=== PATIENT | male | born 1955 | race Caucasian/White ===

== ENCOUNTER → 2024-03-24 13:29 | Outpatient (REF) | payer MEDICARE, OTHER, SELFPAY ==
[2024-03-24 14:14] LABS: Hematocrit 41.1 % (39.0-52.0); Hemoglobin 14.6 g/dL (13.0-18.0); Mean Corp Hgb Conc. 35.5 g/dL (33.0-37.0); Mean Corpuscular Hgb 31.4 pg (27.0-31.0); Mean Corpuscular Volume 88.4 fL (80.0-94.0); Mean Platelet Volume 8.3 fL (7.4-10.4); Platelet Count 168 10^3/uL (130-400); Red Blood Cell Count 4.65 10^6/uL (4.70-6.10); Red Cell Dist. Width 12.8 % (11.5-14.5); White Blood Cell Count 6.4 10^3/uL (4.8-10.8)
== END ==
LOC: SDSPAT 13:29
PROVIDERS: ATTENDING PHYSICIAN Orthopaedic Surgery Hand Surgery; FAMILY PHYSICIAN Student in an Organized Health Care Education/Training Program
DX: Z01.818 Encounter for other preprocedural examination (principal)
CPT/HCPCS: 36415; 85027; 93005

== ENCOUNTER 2024-04-01 06:11 | Day surgery (SDC) | payer MEDICARE, SELFPAY ==
[2024-03-24 14:02] VITALS: BMI 32.3
[2024-04-01] VITALS (9 sets, daily range): BP systolic 118–148; BP diastolic 61–73; BMI 32.3
[2024-04-01] MEDS: NORMOSOL-R/PLASMALYTE-A 1000 IV (07:52)
[2024-04-01] MEDS: TYLENOL 1000 MG PO (07:53)
[2024-04-01] MEDS: CELEBREX 200 MG PO (07:53)
[2024-04-01] MEDS: ROXICODONE 5 MG PO (12:05)
== END 2024-04-01 12:43 | disposition home or self-care (01) ==
LOC: SDS 06:11
PROVIDERS: ATTENDING PHYSICIAN Orthopaedic Surgery Hand Surgery; FAMILY PHYSICIAN Student in an Organized Health Care Education/Training Program
DX: M75.41 Impingement syndrome of right shoulder (principal); S46.012A Strain of muscle(s) and tendon(s) of the rotator cuff of left shoulder, initial encounter; W19.XXXA Unspecified fall, initial encounter
CPT/HCPCS: 29827; 29826; 29823; C1713

== ENCOUNTER 2024-04-16 17:15 | Inpatient (IN) | payer MEDICARE, OTHER, SELFPAY ==
[2024-04-16] VITALS (8 sets, daily range): BP systolic 133–171; BP diastolic 72–88; BMI 32.0
--- NOTE | 2024-04-16 09:51 | ED.GENMED ---
History of Present Illness
<Jia Gross PA-C - Last Filed: 04/16/24 16:44>
General
Chief Complaint: Musculo-Skeletal Complaint
Source: patient
Exam Limitations: none
Time Seen by Provider: 04/16/24 09:29
Nursing documentation reviewed up to this point in time: agreed with
History of Present Illness
History of Present Illness:
69 y/o M with weakness in ghis legs for 2 days
pt says that he noticed he had some difficulty feeling slightly weak in his left leg with some discomfort in his L groin/prox thigh region
he was still able to walk around, grilled for dinner etc
by yesterday he was unable to walk unassisted; he has trouble picking his leg up off the grouna dnow feels it on his right thigh/groin region as well
no saddle anesthesia or incontinence; took him 20 minutes to get to the bathroom
ultimately called 911 today because he coudltn' walk well enough to get to the car
no fever/chills/back pain, cp, sob, numbness, headache
no back problems
takes a statin
no swelling in the legs
rotator cuff surgery 2 weeks ago
no recent vaccines
Phy Exam
<Jia Gross PA-C - Last Filed: 04/16/24 16:44>
Physical Exam
Physical Exam:
GENERAL: Alert , in no apparent distress
HEAD: NCAT
EYE: pupils equal and reactive, no nystagmus, no photophobia
NECK: Supple,full rom, nontender
ENT: o/p clr, mmm.
CARDIAC: Regular rate and rhythm . no edema
LUNGS: Clear breath sounds bilaterally, no acute respiratory distress, no wheezes/rales/rhonchi
ABDOMEN: Soft, without focal tenderness, no r/g, no cvat
NEUROLOGICAL: Alert and orientedx 4, cn intact, no facial asymmetry, 5/5 strength in UE/LE, sensation intact, romberg neg, ambulates without assistance, neg pronator drift
SKIN: Warm and dry, skin intact.
MUSCULOSKELETAL: No edema, well perfused.
PSYCH: Normal and appropriate interaction.
Course
<Jia Gross PA-C - Last Filed: 04/16/24 16:44>
Orders/Labs/Results
Orders:
Orders
04/16/24 09:45
Electrocardiogram (*1) Urgent
Reason for Study: Fatigue / Weakness
EKG- Treatment ONCE
04/16/24 10:00
Consult Neurology [NEUROLOGY CONSULT] Urgent
Consulting Provider: Thien Mcpherson
Was physician already notified: Yes
04/16/24 10:06
COVID-19 Antigen Urgent
Source: Nasal Swab
CPK [Creatine Phosphokinase] Urgent
CRP [C-Reactive Protein] Urgent
Complete Blood Count/With Diff Urgent
Comprehensive Metabolic Panel Urgent
ESR [Erythrocyte Sed Rate] Urgent
Lyme Progressive Urgent
Magnesium Urgent
Comment: ADD ON
Phosphorus Urgent
Comment: ADD ON
TSH Reflex To Free T4 Urgent
Influenza A+B Rapid Molecular Urgent
CASI Source: Nasal Swab
Specimen Description:
04/16/24 10:25
Add On- LAB Urgent
Tests Added?: magnesium and phosphorus
04/16/24 10:43
MR Lumbar W/o & With Contrast Urgent
Comment:
Reason For Exam: prox LE weakness
Recent pill cam endoscopy?: No
MR Thoracic Spine W/o & With Stat
Comment:
Reason For Exam: prox LE/groing/pelvis weakness
Recent pill cam endoscopy?: No
04/16/24 Dinner
Regular
At Your Request: Full Participation
Does patient need a safe tray?: No
04/16/24 16:31
Add On- LAB Urgent
Tests Added?: creat kinase
Ct Cta A/P W/Wo Urgent
Reason For Exam: Abdominal pain
04/16/24 17:02
Cyclobenzaprine HCl [Flexeril] 10 mg PO NOW STA
Cyclobenzaprine HCl [Flexeril] 10 mg PO TIDPRN PRN
04/16/24 17:07
Admit/Transfer Patient As Directed
Co-Sign Provider:
Level of Care: Inpatient admission
Assign to:: Medical/Surgical
Physician / Group: theodore carver
Diagnosis: bilat thigh weakenss/ spasm amb dys unclear poss myopathy vs other neuromus
Reason for Hospitalization: bilat thigh weakenss/ spasm amb dys unclear poss myopathy vs other neuromus
Expected length of stay greater than two midnights?: Yes
ELOS- Estimated Length of Stay in days: 4
I certify the patient meets the requirements for IP care: Yes
Code Status As Directed
Resuscitation Status: Full Code
04/16/24 17:09
PRN Pain Medication Management As Directed
May give lesser potent ordered pain med per pt: Yes
preference::
Protocol:: Medication orders for pain may be administered in a
manner that supports deferring to patient preference
when the pt is:
- Requesting an ordered lesser potent pain medication.
Least to most potent pain medications are defined
as: acetaminophen < NSAID < tramadol < opioids
(morphine, oxycodone, hydromorphone).
- Requesting a lesser dose of the same medication IF
ORDERED.
- Requesting a less intrusive route of administration
if both routes are prescribed by the provider (PO <
IV).
04/16/24 17:10
Neurosurgery Consult Routine
Consulting Provider: Jed Smith
Was physician already notified: Yes
Reason for Consult: bilat leg thigh weakness with amb dysfunction
Consult Physiatry [Physiatry Consult] Routine
Consulting Provider: Luis Carlos Peñaloza
Was physician already notified: Yes
Reason for consult: bilat leg thight weakness
04/16/24 18:13
Acetaminophen [Tylenol] 650 mg PO Q4HPRN PRN
Oxycodone [Roxicodone] 5 mg PO BIDPRN PRN
04/16/24 18:13
Activity As Directed
Activity Level: With Assistance
Bladder Scan As Directed
Follow Bladder Retention/Intermittent Cath Algorithm?: Yes
PRN if no void in __ hours: 6
Frequency: Per Retention Algorithm
If Bladder Scan Result >: 400
then:: Straight cath
Straight Cath As Directed
Frequency: Per Retention Algorithm
Additional Instructions: straight cath as needed per acute urinary retention algorithm for 24 hrs
Additional Instructions: for bladder scan greater than 400 mL
Vital Signs As Directed
Frequency: Per unit guidelines
Ot Eval And Treat Routine
Pt Eval And Treat Routine
Activity Level: With Assistance
DX Deep Vein Thrombosis Video Routine
04/16/24 20:00
Heparin 5,000 units SC Q12
04/17/24 08:00
Amlodipine [Norvasc] 10 mg PO DAILY
Lisinopril [Zestril] 40 mg PO DAILY
Multivitamin [Theragran] 1 tablet PO DAILY
04/17/24 09:00
Basic Metabolic Panel IN AM
Complete Blood Count/With Diff IN AM
Abnormal Lab Results
04/16/24
10:06
RBC 4.52 L 10^6/uL
(4.70-6.10)
Absolute Neuts (auto) 7.6 H 10^3/uL
(1.4-6.5)
Absolute Lymphs (auto) 0.9 L 10^3/uL
(1.2-3.4)
Absolute Monos (auto) 0.8 H 10^3/uL
(0.1-0.6)
Neutrophils % 81.4 H %
(42.2-75.2)
Lymphocytes % 9.1 L %
(20.5-51.1)
ESR 32 H mm/hour
(0-20)
Glucose 112 H mg/dl
(70-99)
C-Reactive Protein 49.80 H mg/L
(0.0-10.00)
04/16/24 10:06
04/16/24 10:06
Vital Signs
Initial and Last Documented VS:
Initial Vital Signs
Temp Pulse Resp BP Pulse Ox
98.6 F 69 16 158/81 99
04/16/24 09:28 04/16/24 09:28 04/16/24 09:28 04/16/24 09:28 04/16/24 09:28
Last Documented Vital Signs
Temp Pulse Resp BP Pulse Ox
97.7 F 51 18 118/60 98
04/19/24 23:41 04/19/24 23:41 04/19/24 23:41 04/19/24 23:41 04/19/24 23:41
<Akbar Frazier MD - Last Filed: 04/20/24 05:44>
Orders/Labs/Results
Orders:
Orders
04/16/24 09:45
Electrocardiogram (*1) Urgent
Reason for Study: Fatigue / Weakness
EKG- Treatment ONCE
04/16/24 10:00
Consult Neurology [NEUROLOGY CONSULT] Urgent
Consulting Provider: Thien Mcpherson
Was physician already notified: Yes
04/16/24 10:06
COVID-19 Antigen Urgent
Source: Nasal Swab
CPK [Creatine Phosphokinase] Urgent
CRP [C-Reactive Protein] Urgent
Complete Blood Count/With Diff Urgent
Comprehensive Metabolic Panel Urgent
ESR [Erythrocyte Sed Rate] Urgent
Lyme Progressive Urgent
Magnesium Urgent
Comment: ADD ON
Phosphorus Urgent
Comment: ADD ON
TSH Reflex To Free T4 Urgent
Influenza A+B Rapid Molecular Urgent
CASI Source: Nasal Swab
Specimen Description:
04/16/24 10:25
Add On- LAB Urgent
Tests Added?: magnesium and phosphorus
04/16/24 10:43
MR Lumbar W/o & With Contrast Urgent
Comment:
Reason For Exam: prox LE weakness
Recent pill cam endoscopy?: No
MR Thoracic Spine W/o & With Stat
Comment:
Reason For Exam: prox LE/groing/pelvis weakness
Recent pill cam endoscopy?: No
04/16/24 Dinner
Regular
At Your Request: Full Participation
Does patient need a safe tray?: No
04/16/24 16:31
Add On- LAB Urgent
Tests Added?: creat kinase
Ct Cta A/P W/Wo Urgent
Reason For Exam: Abdominal pain
04/16/24 17:02
Cyclobenzaprine HCl [Flexeril] 10 mg PO NOW STA
Cyclobenzaprine HCl [Flexeril] 10 mg PO TIDPRN PRN
04/16/24 17:07
Admit/Transfer Patient As Directed
Co-Sign Provider:
Level of Care: Inpatient admission
Assign to:: Medical/Surgical
Physician / Group: theodore carver
Diagnosis: bilat thigh weakenss/ spasm amb dys unclear poss myopathy vs other neuromus
Reason for Hospitalization: bilat thigh weakenss/ spasm amb dys unclear poss myopathy vs other neuromus
Expected length of stay greater than two midnights?: Yes
ELOS- Estimated Length of Stay in days: 4
I certify the patient meets the requirements for IP care: Yes
Code Status As Directed
Resuscitation Status: Full Code
04/16/24 17:09
PRN Pain Medication Management As Directed
May give lesser potent ordered pain med per pt: Yes
preference::
Protocol:: Medication orders for pain may be administered in a
manner that supports deferring to patient preference
when the pt is:
- Requesting an ordered lesser potent pain medication.
Least to most potent pain medications are defined
as: acetaminophen < NSAID < tramadol < opioids
(morphine, oxycodone, hydromorphone).
- Requesting a lesser dose of the same medication IF
ORDERED.
- Requesting a less intrusive route of administration
if both routes are prescribed by the provider (PO <
IV).
04/16/24 17:10
Neurosurgery Consult Routine
Consulting Provider: Jed Smith
Was physician already notified: Yes
Reason for Consult: bilat leg thigh weakness with amb dysfunction
Consult Physiatry [Physiatry Consult] Routine
Consulting Provider: Luis Carlos Peñaloza
Was physician already notified: Yes
Reason for consult: bilat leg thight weakness
04/16/24 18:13
Acetaminophen [Tylenol] 650 mg PO Q4HPRN PRN
Oxycodone [Roxicodone] 5 mg PO BIDPRN PRN
04/16/24 18:13
Activity As Directed
Activity Level: With Assistance
Bladder Scan As Directed
Follow Bladder Retention/Intermittent Cath Algorithm?: Yes
PRN if no void in __ hours: 6
Frequency: Per Retention Algorithm
If Bladder Scan Result >: 400
then:: Straight cath
Straight Cath As Directed
Frequency: Per Retention Algorithm
Additional Instructions: straight cath as needed per acute urinary retention algorithm for 24 hrs
Additional Instructions: for bladder scan greater than 400 mL
Vital Signs As Directed
Frequency: Per unit guidelines
Ot Eval And Treat Routine
Pt Eval And Treat Routine
Activity Level: With Assistance
DX Deep Vein Thrombosis Video Routine
04/16/24 20:00
Heparin 5,000 units SC Q12
04/17/24 08:00
Amlodipine [Norvasc] 10 mg PO DAILY
Lisinopril [Zestril] 40 mg PO DAILY
Multivitamin [Theragran] 1 tablet PO DAILY
04/17/24 09:00
Basic Metabolic Panel IN AM
Complete Blood Count/With Diff IN AM
Abnormal Lab Results
04/16/24
10:06
RBC 4.52 L 10^6/uL
(4.70-6.10)
Absolute Neuts (auto) 7.6 H 10^3/uL
(1.4-6.5)
Absolute Lymphs (auto) 0.9 L 10^3/uL
(1.2-3.4)
Absolute Monos (auto) 0.8 H 10^3/uL
(0.1-0.6)
Neutrophils % 81.4 H %
(42.2-75.2)
Lymphocytes % 9.1 L %
(20.5-51.1)
ESR 32 H mm/hour
(0-20)
Glucose 112 H mg/dl
(70-99)
C-Reactive Protein 49.80 H mg/L
(0.0-10.00)
04/16/24 10:06
04/16/24 10:06
Vital Signs
Initial and Last Documented VS:
Initial Vital Signs
Temp Pulse Resp BP Pulse Ox
98.6 F 69 16 158/81 99
04/16/24 09:28 04/16/24 09:28 04/16/24 09:28 04/16/24 09:28 04/16/24 09:28
Last Documented Vital Signs
Temp Pulse Resp BP Pulse Ox
97.7 F 51 18 118/60 98
04/19/24 23:41 04/19/24 23:41 04/19/24 23:41 04/19/24 23:41 04/19/24 23:41
<Jia Gross PA-C - Last Filed: 04/16/24 16:44>
MDM/Problems Addressed
Differential Diagnosis Includes:
rhabdo, GBS, myasthenia, spinal stenosis,
MDM/Problems Addressed:
dorcas yi 69 y/o M
2 days prox LE weakness; cannot lift his legs up to step
no UE weakness
no eyelid ptosis
some mild groin pain b/l
no incontinence, no fever
stable vitals
some mild difficulty pulling himself up, truncal weakness? and prox LE weakness
brisk UE reflexes, no ptosis
checking labs incluidng cpk, er, crp and considering MRI though unlikely cauda equina with normal sensation and no incontiennce
seen by ed attending and neurology attending
neuro recommends MR Thoracic and lumbar region with and without contrast
1440- MRI reports reviewed
No significant diseae to explain symptoms
normal perineum on insepction, normal rectal tone
pain in his thighs with movement
d/w neurologist who reocmmended NSG evlauation - i spoke with dr. smith who did review the MRIs and also agreed there was no NSG urgent intervention necessary; can keep pt here and he will consult
pt agreable to this
<Jia Gross PA-C - Last Filed: 04/16/24 16:44>
*Critical Care Note
Total Time (30-74mins, 75-104mins- exclusive of procedures): Not Applicable
ED Attending Note
<Jia Gross PA-C - Last Filed: 04/16/24 16:44>
-
Portions of this chart may have been created with voice recognition software.� Occasional wrong word or��sound alike� substitutions may have occurred due to the inherent limitations of voice recognition software.
<Akbar Frazier MD - Last Filed: 04/20/24 05:44>
ED Attending Note
Patient seen and examined by attending physician: Yes
I performed the substantive portion of visit, reviewed & personally made and approve the management plan that is documented in note by myself or TALITA.: Yes
ED Attending Note:
69-year-old male left shoulder surgery 2 weeks ago. Starting 2 days ago he developed bilateral leg pain more medial upper thigh associated with weakness. No fever. No neck pain. Some mild low back pain but this has been a recurring issue. No
fever or chills. No bowel or bladder issues. Symptoms have progressed over 2 days.
GENERAL: Alert and oriented in no apparent distress
EYE: Orbits normal.
NECK: Supple, nontender. No thyroid palpable
CARDIAC: Regular rate and rhythm without any obvious murmurs.
LUNGS: Clear breath sounds,normal
ABDOMEN: Soft, without focal tenderness or distention
NEUROLOGICAL: Alert and oriented , grossly non-focal. Plantar dorsiflexion of the feet normal. However unable to straight leg raise secondary to weakness and pain. Reflexes are hyper in the upper and lower extremity with occasional muscle spasms
at times
SKIN: Warm and dry, no rash or lesion, no discoloration, skin intact.
MUSCULOSKELETAL: No edema,no deformity.Good color. No point tenderness to the thighs bilaterally. No tenderness at tendinous insertions of the pelvis. No leg swelling.
PSYCH: Normal and appropriate interaction.
Bilateral lower extremity weakness more proximal in nature. Associated with pain. Differential would include electrolyte issue, Guillain-Smith� although hyperreflexic, endocrine issue, spinal issue. Workup in progress. Neurology consult. Labs
pending. Clearly warrants admission.
Discharge Plan
Departure
Patient Disposition: Admit
Date of Disposition: 04/16/24
Time of Disposition: 16:11
Admit to: Med/Surg
Presentation/result/management discussed w/ accepting MD/DO: Hospitalist
Covid-19: Not Applicable
Discharge Problem:
Acute muscle weakness
Interventions
Interventions:
*General Assessment Last Done: 04/16/24 09:28
*Neglect/Abuse Screening Last Done: 04/16/24 09:28
ED- Fall Risk Assessment Last Done: 04/16/24 09:28
*Nursing Disposition Last Done: 04/16/24 18:18
ED-Musculoskeletal Assessment Last Done: 04/16/24 09:28
Discharge Date and Time
Discharge Date/Time: 04/16/24 18:18
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
[2024-04-16 10:29] LABS: COVID-19 Antigen Negative (Negative)
[2024-04-16 10:30] LABS: ALT (SGPT) 24 U/L (0-50); AST (SGOT) 21 U/L (17-59); Albumin 4.6 g/dl (3.5-5.0); Alkaline Phosphatase 59 U/L (38-126); Blood Urea Nitrogen 13 mg/dl (9-20); Calcium 9.7 mg/dl (8.4-10.2); Carbon Dioxide 29 mmol/L (22-30); Chloride 102 mmol/L (98-107); Creatine Phosphokinase 83 U/L (55-170); Estimated Creatinine Clearance > 125 ml/min; Glucose 112 mg/dl (70-99); Potassium 3.9 mmol/L (3.5-5.1); Sodium 141 mmol/L (135-145); Total Bilirubin 0.7 mg/dl (0.2-1.3); Total Protein 7.3 g/dl (6.3-8.2); eGFR > 60.00
[2024-04-16 10:34] LABS: % Basophils 0.3 % (0-2); % Eosinophils 0.4 % (0-6); % Immature Granulocytes 0.3 % (0-0.5); % Lymphocytes 9.1 % (20.5-51.1); % Monocytes 8.5 % (1.7-9.3); % Neutrophils 81.4 % (42.2-75.2); Absolute Lymphocytes 0.9 10^3/uL (1.2-3.4); Absolute Monocytes 0.8 10^3/uL (0.1-0.6); Absolute Neutrophils 7.6 10^3/uL (1.4-6.5); Hematocrit 39.9 % (39.0-52.0); Hemoglobin 13.9 g/dL (13.0-18.0); Mean Corp Hgb Conc. 34.8 g/dL (33.0-37.0); Mean Corpuscular Hgb 30.8 pg (27.0-31.0); Mean Corpuscular Volume 88.3 fL (80.0-94.0); Mean Platelet Volume 8.4 fL (7.4-10.4); Nucleated Red Blood Cells % 0 % (-); Platelet Count 216 10^3/uL (130-400); Red Blood Cell Count 4.52 10^6/uL (4.70-6.10); Red Cell Dist. Width 12.2 % (11.5-14.5); White Blood Cell Count 9.4 10^3/uL (4.8-10.8)
[2024-04-16 10:53] LABS: Magnesium 2.1 mg/dl (1.6-2.3)
[2024-04-16 11:30] LABS: Erythrocyte Sed Rate 32 mm/hour (0-20)
--- NOTE | 2024-04-16 16:36 | HPS.HSE ---
Family Physician
-
Family Physician: Wu Cortez, DO
Chief Complaint
-
bilat thigh weakness , muscle spasms
History of Present Illness
69-year-old male complaining of weakness bilateral legs for the past 2 days. Initially noted weakness in his left leg with some discomfort to the left groin and proximal thigh region but was able to walk around then yesterday 04/15/2024 he was
unable to walk he had trouble picking up the legs up off of the ground and the pain radiated to the right thigh groin area. He denies saddle anesthesia or incontinence. He denies fever, chills, back pain, abdominal pain, nausea, vomiting,
diarrhea, chest pain, palpitations, shortness of, cough, headache, urinary symptoms. He is on a statin. He had rotator cuff surgery 2 weeks ago 2/2 left shoulder impingement 04/01/[address] Hawkins . Past medical history includes HTN, HLD.
Medical History
Past Medical History
Past Medical History: Reports Other
Additional Past Medical History:
HTN, HLD, cigar smoker, daily alcohol 1 beer, osteoarthritis, DDD.
Past Surgical History: Reports Other
Additional Past Surgical History:
Bilateral knee replacements 2021, 2022
Right rotator cuff repair 04/01/2024
Bilateral heel spurs
Left CTR
Left rotator cuff repair
Social History
Tobacco: Smoker (Occasional cigar)
Alcohol: Daily (1 beer daily)
Personal:
Living: With Family
Family History
Family History: Other (No neurological diseases, mother history of multiple cancers, father complications CVA)
Allergies / Home Medications
Allergies reflects when Allergies were last updated in [facility].
Home Medications with original date entered in [facility]
Allergy/Medication List:
Allergies
Allergy/AdvReac Type Severity Reaction Status Date / Time
No Known Allergies Allergy Verified 10/02/24 07:34
Home Medications
amlodipine 10 mg tablet 10 mg PO DAILY Blood Pressure 03/25/24
ibuprofen 200 mg tablet 400 mg PO BIDPRN PRN MILD PAIN 03/25/24
lisinopril 40 mg tablet 40 mg PO DAILY Blood Pressure 03/25/24
multivitamin 1 tab PO DAILY Supplement 03/25/24
simvastatin 20 mg tablet 20 mg PO DAILY High Cholesterol 03/25/24
oxycodone 5 mg tablet 5 mg PO BIDPRN PRN severe shoulder pain 04/16/24
Review of Systems
-
History Source: Patient
A 12 point ROS was completed and negative except as noted: Yes
Constitutional: Denies Fever, Fatigue or Chills
EENT: Denies Sore Throat or Runny Nose
Respiratory: Denies Cough or Trouble Breathing
Cardiac: Denies Chest Pain, Diaphoresis, Palpitations or Syncope
Abdomen/GI: Denies Abdominal Pain, Nausea, Vomiting, Diarrhea, Constipated, Bloody Stools or Black Stools
: Denies Dysuria, Frequency, Flank Pain, Incontinence, Difficulty Voiding or Urgency
Musculoskeletal: Reports Muscle Pain (Left and right anterior groin tenderness with active visual muscle spasms lateral aspects of anterior thighs left and right, weakness thighs unable to lift legs lower sensation intact, hyperreflexive); Denies
Joint Pain
Skin: Denies Itching or Rash
Neurological: Reports Weakness (Left and right anterior groin tenderness with active visual muscle spasms lateral aspects of anterior thighs left and right, weakness thighs unable to lift legs lower sensation intact, hyperreflexive); Denies Dizzy or
Headache
Endocrine: Reports No Symptoms
Hematologic/Lymphatic: Reports No Symptoms
Psych: Reports Calm
Physical Exam
Vital Signs
Vital Signs
Temp Pulse Resp BP Pulse Ox
98.6 F 66 16 151/86 99
04/16/24 09:28 04/16/24 10:30 04/16/24 09:28 04/16/24 15:12 04/16/24 12:13
Physical Exam
General: Conversant and Pain; No Fever or Chills
HEENT: NormoCephalic, Anicteric, Moist mucous membranes, PERRLA, [place] Conjunctivae, No Ptosis and Neck Nontender
Respiratory: Clear; No Wheezes, Rales or Rhonchi
Cardiac: S1/S2 and Regular Rhythm; No Murmur, Rub, Gallop or Peripheral Edema
Breast: Deferred by me
GI: Soft, Non Tender, Non Distended, Normal Bowel Sounds and No Hepatosplenomegaly
Rectal: Deferred by Provider
Genito-urinary: Deferred by me
Musculoskeletal: No Clubbing, No Cyanosis, No Edema and Other (Left and right anterior groin tenderness with active visual muscle spasms lateral aspects of anterior thighs left and right, weakness thighs unable to lift legs lower sensation intact,
hyperreflexive)
Skin: Warm and Dry; No Rash or Jaundice
Neuro: AO x 3, Nonfocal/grossly intact and Other (Left and right anterior groin tenderness with active visual muscle spasms lateral aspects of anterior thighs left and right, weakness thighs unable to lift legs lower sensation intact,
hyperreflexive); No Slurred Speech, Facial Droop or Tremors
Psych: Calm
Laboratory Results
-
04/16/24 10:06
04/16/24 10:06
Laboratory Results
Total Bilirubin 0.7 mg/dl (0.2-1.3) 04/16/24 10:06
AST 21 U/L (17-59) 04/16/24 10:06
ALT 24 U/L (0-50) 04/16/24 10:06
Alkaline Phosphatase 59 U/L (38-126) 04/16/24 10:06
Impression/Plan
-
Impression/plan:
Admit to MedSurg
#Bilateral leg weakness with Acute ambulatory dysfunction unclear concern for myopathy vs other neuromuscukar diseases
Postvoid residual intact, rectal tone intact per ER provider
-Consult Neurology
-Consult Neurosurgery Dr. Dobbins aware
-Will likely need outpatient EMG testing
-Consult Dr. Lyle
-Will try Flexeril 10 mg 3 times daily as needed muscle spasms
-Hold simvastatin 20 mg daily
-PT/OT/case management consult
Lumbar MRI: L4-L5 moderate to severe DDD central left side of the disc space with degenerative marrow endplate signal change Modic type II.
Moderate posterior disc bulge with moderate to severe bilateral facet degenerative changes., Moderate overall central canal stenosis.
L5-S1 mild DDD with mild posterior disc bulge and moderate to severe bilateral facet degenerative change.
L2-L3 moderate to severe DDD, L3-L4 moderate DDD
#HTN
cont lisinopril 40 mg daily
-Continue amlodipine 10 mg daily
#HLD
-Hold simvastatin 20 mg daily
-CPK normal
#Recent left shoulder rotator cuff repair 04/01/2024
-Patient currently in pillow sling additional 2 weeks with follow-up Ortho [address] hawkins
DVT prophylaxis
Subcu heparin
Full code
--- NOTE | 2024-04-16 17:07 | W.PN.UPDATE ---
Update Note
Progress Note Update
This is an addendum to the H&P written by Graciela Aleman on 04/16/2024.� Patient seen and examined independently with [employer].
69-year-old male past medical history of hypertension, hyperlipidemia, left rotator cuff tear status post surgery, bilateral knee replacement, presenting with left thigh pain with movement of the left leg with inability to lift the leg which later
involved his right thigh and inability to lift his right leg.
On physical examination he has bilateral thigh fasciculations versus spasms, significantly impaired strength of his proximal bilateral lower extremities.� Strength is preserved with feet.� Reflexes are very brisk.� Rectal tone is intact.� No
incontinence.
Lumbar MRI shows multilevel degenerative disease most significant at L4-L5 with severe degenerative disc disease with compression of the thecal sac.� Thoracic MRI shows degenerative disc disease of the cervical spine.
Vitals and labs unremarkable apart from elevated inflammatory markers.� CK unremarkable.� TSH unremarkable.� Lyme's pending.��
Presentation concerning for upper motor neuron injury although MRI results not corresponding.� Neurology following.� Hold statin.� Bladder scan protocol.� Patient may require EMG.� ER spoke with neurosurgery, who are consulted who does not think
findings would cause cord compression.� Can try as needed Flexeril.� PMNR consulted.
[2024-04-16] MEDS: FLEXERIL 10 MG PO (17:11)
--- NOTE | 2024-04-16 18:25 | PTCARENOTE ---
04/16- Patient transferred and oriented to unit without issue. AAOX3; L-arm in brace/sling from Rotator Cuff Surgery last week. 1inch surgical incision sites CDI with steristrips intact. Skin tags on BL areolas observed. MedSurg. Patient
states BL leg pain and spasms, unable to ambulate at this time. Patient denies any current needs.
[2024-04-16] MEDS: HEPARIN 5000 UNITS SC (20:10)
[2024-04-17 07:30] VITALS: BP 161/90
[2024-04-17] MEDS: ZESTRIL 40 MG PO (07:35)
[2024-04-17] MEDS: NORVASC 10 MG PO (07:35)
[2024-04-17] MEDS: THERAGRAN 1 TABLET PO (07:35)
[2024-04-17] MEDS: FLEXERIL 10 MG PO (07:35)
[2024-04-17] MEDS: HEPARIN 5000 UNITS SC ×2 (07:38→19:39)
[2024-04-17 09:28] LABS: % Basophils 0.3 % (0-2); % Eosinophils 0.3 % (0-6); % Immature Granulocytes 0.3 % (0-0.5); % Lymphocytes 8.7 % (20.5-51.1); % Monocytes 9.1 % (1.7-9.3); % Neutrophils 81.3 % (42.2-75.2); Absolute Lymphocytes 0.9 10^3/uL (1.2-3.4); Absolute Monocytes 0.9 10^3/uL (0.1-0.6); Absolute Neutrophils 8.2 10^3/uL (1.4-6.5); Hematocrit 41.4 % (39.0-52.0); Hemoglobin 14.7 g/dL (13.0-18.0); Mean Corp Hgb Conc. 35.5 g/dL (33.0-37.0); Mean Corpuscular Hgb 30.9 pg (27.0-31.0); Mean Corpuscular Volume 87.2 fL (80.0-94.0); Mean Platelet Volume 8.5 fL (7.4-10.4); Nucleated Red Blood Cells % 0 % (-); Platelet Count 210 10^3/uL (130-400); Red Blood Cell Count 4.75 10^6/uL (4.70-6.10); Red Cell Dist. Width 12.1 % (11.5-14.5); White Blood Cell Count 10.1 10^3/uL (4.8-10.8)
--- NOTE | 2024-04-17 09:38 | W.PN.UPDATE ---
Update Note
Progress Note Update
Pt seen and examined, full progress note to follow. Fatsoma message sent to Davey Mcpherson and Fernando at 0938 stating:
'I'm very concerned about this pt as I really don't know why his LEs are so weak. Based on T-spine MRI I ordered C-spine MRI. I'm thinking next step is LP if neurology is in agreement. I want to make sure that we send appropriate CSF studies and
would ask neuro to weigh in on this. Also, would MRIs with contrast be beneficial?'
[2024-04-17 10:01] LABS: Blood Urea Nitrogen 15 mg/dl (9-20); Calcium 9.7 mg/dl (8.4-10.2); Carbon Dioxide 19 mmol/L (22-30); Chloride 105 mmol/L (98-107); Estimated Creatinine Clearance 113 ml/min; Glucose 121 mg/dl (70-99); Potassium 4.1 mmol/L (3.5-5.1); Sodium 141 mmol/L (135-145); eGFR > 60.00
--- NOTE | 2024-04-17 10:37 | W.PN.NEURO.1 ---
Documented by User: Gricel Soto NP 04/17/24 12:38
Today's Communication / Plan
-
.
Neuro Assessment/Plan
Assessment
This is a 69-year-old RH male who presented to on 04/16/24 with report of acute onset BLE weakness associated with b/l groin/inner thigh pain on leg exertion.
-MRI thoracic spine 04/16/24: Changes of degenerative disc disease in the cervical spine from C4-5 through C6-7, there appears to be slight compression of the anterior spinal cord. If further imaging evaluation of the cervical spine is desired, a
full MRI exam of the cervical spine could be performed. Moderate changes of degenerative disc disease from T3-4 through T12-L1. No evidence for spinal cord compression or significant overall central canal stenosis. Normal morphology and signal
intensity of the thoracic spinal cord, with no evidence for abnormal enhancement.
-MRI lumbar spine 04/16/24: Changes of degenerative disc disease. Most significant findings appear to be at L4-5. There is no MR evidence for discitis or osteomyelitis.
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
II. Thoracic and Lumbar spine with multilevel degenerative changes most prominent at L4, L5, per Neurosurgery not severe enough to be contributing to symptoms.
III. Low concern for GBS as he is hyperreflexic, sensation and bowel/bladder function are intact. If reflexes become absent, then there is greater concern for this.
Plan
-Cervical spine MRI pending.
-Initiate Solu-Medrol 250mg IV q12hrs initiated by Dr. Mcpherson.
-Consider EMG testing in 1-2 weeks, at this point it may be too early to have conclusive test results.
-Hold statin therapy.
-Physical therapy evaluations.
-Neurosurgery following.
-Bladder scan protocol.
-DVT prophylaxis.
-Will follow.
Subjective/Objective
Subjective Data
Date of Service: April 17, 2024
No acute events overnight. Patient reports that his BLE strength is improved today, primarily in his LLE. He still notes significant bilateral groin/medial upper thigh pain with leg movement. He also notes mild neck pain with resistance. He denies
any headache, dizziness, vision changes, speech/swallow difficulty, sensation changes, upper extremity weakness, bowel/bladder changes, and saddle paresthesia.
Objective Data
Vital Signs
Temp Pulse Resp BP Pulse Ox
98.1 F 68 22 161/90 100
04/17/24 07:30 04/17/24 07:30 04/17/24 07:30 04/17/24 07:30 04/17/24 07:35
Lab Results
04/17/24 09:00
04/17/24 09:00
Sodium 141 mmol/L (135-145) 04/17/24 09:00
Potassium 4.1 mmol/L (3.5-5.1) 04/17/24 09:00
BUN 15 mg/dl (9-20) 04/17/24 09:00
Glucose 121 mg/dl (70-99) H 04/17/24 09:00
Calcium 9.7 mg/dl (8.4-10.2) 04/17/24 09:00
Phosphorus Cancelled 04/16/24 10:13
Patient Allergies
No Known Allergies Allergy (Verified 04/01/24 07:34)
Review of Systems
-
History Source: Patient
EENT: Negative Blurry Vision, Decreased Vision or Swallowing Difficulty
Respiratory: Negative Cough or Trouble Breathing
Cardiac: Negative Chest Pain or Palpitations
Abdomen/GI: Negative Nausea
Genitourinary: Negative Incontinence or Difficulty Voiding
Musculoskeletal: Muscle Pain (b/l groin/inner thigh pain with leg lifting)
Neuro: Weakness; Negative Dizzy, Headache, Numbness, Ataxia, Tremors or Speech Problem
Physical Exam
-
General: Well Developed, Well Nourished and No Apparent Distress
Eyes: No Ptosis and PERRLA
HEENT: Normocephalic and Atraumatic
Neck: Full Range of Motion
GI: Non-distended
Extremities: No Clubbing, No Cyanosis and No Edema
Psych: Unremarkable
Extended Neurological Exam
Mood & Affect: Mood Unremarkable and Affect Unremarkable
Attention Span & Concentration: Awake, Alert and Interactive
Memory: Unremarkable (AAOx3) and Able to Recall
Tremor: Hand Tremor Absent and Head Tremor Absent
Involuntary Movement: None
Speech: Quality Unremarkable, Quantity Unremarkable and Rate of Production Unremarkable
Cranial Nerve II: Left Eye: Pupillary Reactivity Unremarkable, Pupillary Size Unremarkable and Visual Paredes Intact
Cranial Nerve II: Right Eye: Pupillary Reactivity Unremarkable, Pupillary Size Unremarkable and Visual Paredes Intact
Cranial Nerves III, IV, : Extraocular Movement: Extraocular Movement Full in all Directions
Cranial Nerve V: Facial Sensation: Intact to Light Touch
Cranial Nerve VII: Facial Symmetry: Normal Facial Symmetry
Cranial Nerve VIII: Hearing: Unremarkable Hearing to Normal Conversational Volume
Cranial Nerves IX, X: Palate Movement: Palate Elevation Symmetric
Cranial Nerve XI: Shoulder Shrug: Unremarkable
Cranial Nerve XII: Tongue Protusion: Midline
Muscle Strength, Overall: Other (RUE 5/5, LUE distal 5/5 (KRUPA proximal due to surgical site), neck ext/flex 5/5, LLE proximal 4/5, RLE proximal 2/5, distal BLE 5/5.)
Muscle Bulk & Tone: Bulk Unremarkable and Tone Unremarkable
Pronator Drift: Other (No drift in RUE, KRUPA LUE, drift in BLE)
Deep Tendon Reflexes: 3+
Cold Sensation: Unremarkable
Vibration Sensation: Unremarkable
Touch Sensation: Unremarkable
Coordination: [id number] Testing Unremarkable (KRUPA LUE)
Babinski Sign: Absent Bilaterally
Data Reviewed
-
MRI Cervical Spine: Pending
MRI Thoracic Spine: Report Reviewed and Image Reviewed
MRI Lumbar Spine: Report Reviewed and Image Reviewed
Labs: Report Reviewed
Reviewed with: Physician, Patient and Family
Medications
-
Active Medications
Generic Name Dose Route Start Last Admin
Trade Name Freq PRN Reason Stop Dose Admin
Acetaminophen 650 mg 04/16/24 18:13
Acetaminophen 325 Mg Tablet PO 05/14/24 18:12
Q4HPRN PRN
mild pain/BENSON/temp> 100.4F
Amlodipine Besylate 10 mg 04/17/24 08:00 04/17/24 07:35
Amlodipine 10 Mg Tablet PO 05/15/24 07:59 10 mg
DAILY VANCE Administration
Cyclobenzaprine HCl 10 mg 04/16/24 17:02 04/17/24 07:35
Cyclobenzaprine 10 Mg Tablet PO 05/14/24 17:01 10 mg
TIDPRN PRN Administration
muscle spasms
Heparin Sodium 5,000 units 04/16/24 20:00 04/17/24 07:38
Heparin 5,000 Units/Ml 1 Ml Vial SC 05/14/24 19:59 5,000 units
Q12 VANCE Administration
Lisinopril 40 mg 04/17/24 08:00 04/17/24 07:35
Lisinopril 20 Mg Tablet PO 05/15/24 07:59 40 mg
DAILY VANCE Administration
Methylprednisolone Sodium Succinate 250 mg 04/17/24 12:00
Methylprednisolone Pf 125 Mg/2 Ml Vial IV 05/15/24 11:59
Q12H VANCE
Multivitamins Therapeutic 1 tablet 04/17/24 08:00 04/17/24 07:35
Multivitamin Tablet PO 05/15/24 07:59 1 tablet
DAILY VANCE Administration
Oxycodone HCl 5 mg 04/16/24 18:13
Oxycodone 5 Mg Regular Release Tablet PO 04/30/24 18:12
BIDPRN PRN
severe shoulder pain
Sodium Chloride 0 flush 04/16/24 18:00
Sodium Chloride 0.9% (Flush) Syringe IV 05/14/24 17:59
PER PROTOCOL VANCE
Home Medications
�Medication �Instructions �Recorded
amlodipine 10 mg tablet 10 mg PO DAILY Blood Pressure 03/25/24
ibuprofen 200 mg tablet 400 mg PO BIDPRN PRN MILD PAIN 03/25/24
lisinopril 40 mg tablet 40 mg PO DAILY Blood Pressure 03/25/24
multivitamin 1 tab PO DAILY Supplement 03/25/24
simvastatin 20 mg tablet 20 mg PO DAILY High Cholesterol 03/25/24
oxycodone 5 mg tablet 5 mg PO BIDPRN PRN severe shoulder 04/16/24
pain

Documented by User: Thien Mcpherson MD 04/17/24 21:45
Today's Communication / Plan
-
69-year-old RH male who was admitted to on 04/16/24 with report of acute onset BLE weakness associated with b/l groin/inner thigh pain on leg exertion with normal MRI thoracic and lumbar spine most likely has myopathy of unknown etiology.
PLAN: Solumedrol 250mg IV q12
AVOID Statins
PT/OT
--- NOTE | 2024-04-17 10:40 | W.PN.HOSP.TC ---
Addendum entered and electronically signed by Jeison Lyn MD 04/17/24 12:40:
I saw and evaluated the patient. I reviewed the resident�s note and agree with findings and plan as documented in the resident�s note.
Patient seen and examined earlier today. At that time the patient reported weakness in both lower extremities. Denied any sensory deficits. Denied bowel or bladder incontinence. Denied recent fever, headache, neck stiffness, visual disturbances,
vomiting.
Gen: NAD, AAOx3.
Eyes: EOMI, PERRLA, no scleral icterus.
Neck: supple.
CV: RRR, +S1/S2, no m/r/g.
Resp: CTAB, no rales, wheezes, or rhonchi.
Abd: +BS, soft, NT, ND
Skin: No rashes.
Neuro: CN 2-12 intact, RLE/LLE 2/5, no sensory deficits
Psych: Normal mood and affect.
Bilateral lower extremity weakness due to acute myositis:
-The case has been discussed with Neurosurgery and Neurology today. There is nothing to surgically intervene on. Guillain-Simth� syndrome is unlikely. Patient with elevated ESR and CRP.
-Check MRI C-spine for completeness
-IV Solu-Medrol started as per discussion with neurology.
Obesity due to excess calories
Original Note:
Today's Communication/Plan
-
-Neurology assessment
-Neurosurgery Assessment
-Cervical MRI
-Start IV streoids
Assessment / Plan
Assessment / Plan
Impression:
The patient is a 69-year-old male with a PMH of hypertension, hyperlipidemia, left rotator cuff tear status post surgery, bilateral knee replacement who presented to ER complaining from weakness on both legs and pain on his right/left thigh.The
patient reported he started to have gradually weakness since last 2 days and today he is able to move her left leg more comparing to yesterday. He had his muscle strength preserved on DF/PF grossly 5/5 on both foot. He was obtained Lumbar/thoracic
MRI at admission showing: Changes of moderate to severe degenerative disc disease at multi level of lumbar vertebra and no evidence for discitis or osteomyelitis. He was ordered Cervical MRI due concern slight compression of the anterior spinal
cord which was seen on thoracic spinal MRI. Abd/Pelvis CT was unremarkable for his bilateral muscle weakness. The patient was discussed with Neurology and Neurosurgery on 04/17/24.
Plan/Assessment:
#Bilateral leg weakness with Acute ambulatory dysfunction due Myositis vs DDD vs Neuropathy
-Lumbar/thoracal MRI obtained: Multi level DDD Cervical MRI: pending
-Concern for myopathy vs other neuromuscular diseases
-Neurology involvement appreciated: LP can be considered further with Neurology assessment
-Case discussed with Dr. Mcpherson: Thinks likely inflammatory myositis vs Guillain-Smith� syndrome
-Started on IV steroids.
-Postvoid residual intact, rectal tone intact per ER provider
-Will likely need outpatient EMG testing
-Consult physiatry
-Will try Flexeril 10 mg 3 times daily as needed muscle spasms
-Hold simvastatin 20 mg daily
-PT/OT/case management consult
#HTN
cont lisinopril 40 mg daily
-Continue amlodipine 10 mg daily
#HLD
-Hold simvastatin 20 mg daily
-CPK normal
#Postop left shoulder rotator cuff repair 04/01/2024
-Patient currently in pillow sling additional 2 weeks with follow-up Ortho [address] grubbs
#DVT prophylaxis
-Subcu heparin
#Code status:
Full code
Anticipated Discharge: 24 - 48 hours
Subjective/Interval History
-
Date of Service: April 17, 2024
Patient reports some improvement on his left leg movement today but still has difficulty while trying to move/stand. Denies any recent trauma, radiating pain on his back or neck.
Objective Data
-
Labs:
Laboratory Results
04/17/24
09:00
WBC 10.1
Hgb 14.7
Hct 41.4
Plt Count 210
Sodium 141
Potassium 4.1
Chloride 105
Carbon Dioxide 19 L
BUN 15
Creatinine 0.8
Glucose 121 H
Calcium 9.7
Vital Signs:
Vital Signs
Temp Pulse Resp BP Pulse Ox
98.1 F 68 22 161/90 100
04/17/24 07:30 04/17/24 07:30 04/17/24 07:30 04/17/24 07:30 04/17/24 07:35
I&O
04/16/24 04/17/24 04/18/24
06:59 06:59 06:59
Output Total 650 / 650
Balance -650 / -650
Review of Systems
-
History Source: Patient
EENT: Reports No Symptoms Reported
Respiratory: Reports No Symptoms
Cardiac: Reports No Symptoms
Abdomen/GI: Reports No Symptoms
Genitourinary: Reports No Symptoms
Musculoskeletal: Reports Other (See HPI )
Skin: Reports No Symptoms
Neuro: Reports Other (See HPI )
Physical Exam
-
General: Well Developed, Pain and Conversant
HEENT: Normocephalic, Atraumatic and Moist Mucous Membranes
Respiratory: Clear to Auscultation
Cardiac: Regular Rhythm and S1/S2
GI: Soft, Nontender and Nondistended
Musculoskeletal: No Clubbing, No Cyanosis and Other (Left and mostly right anterior groin tenderness with palpable muscle spasm. Able to raise both legs while sitting in the chair. Muscle strength exam is limited due pain HF/KE and grossly 3-4/5 on
both side. PF/DF 5/5. Has a left shoulder sling due shoulder surgery. )
Skin: Warm
Neuro: Awake, Alert, Oriented and AO x 3
Psych: Calm
--- NOTE | 2024-04-17 11:05 | CON.NS ---
Chief Complaint
-
LE weakness
History of Present Illness
This is a 69 yo male admitted yesterday with two days of LE weakness. Seen by neurology in ER and MRI T and L was obtained.
He notes that he was walking normally two days prior to admission. He noticed some discomfort in his groin on the right and then the left. His symptoms continued to progress until they became so painful that he could not ambulate. He does not feel
that his legs are weak, just that it hurts to move them proximally. He denies any radicular symptoms, he denies any perineal n/t.
ESR and CRP were checked in the ER and are significantly elevated.
MRI c/t/l available for review.
Review of Systems
-
10 pt ROS completed and negative except as stated in HPI
Medication and Allergies
Home Medications
Home Medications
�Medication �Instructions �Recorded
amlodipine 10 mg tablet 10 mg PO DAILY Blood Pressure 03/25/24
ibuprofen 200 mg tablet 400 mg PO BIDPRN PRN MILD PAIN 03/25/24
lisinopril 40 mg tablet 40 mg PO DAILY Blood Pressure 03/25/24
multivitamin 1 tab PO DAILY Supplement 03/25/24
simvastatin 20 mg tablet 20 mg PO DAILY High Cholesterol 03/25/24
oxycodone 5 mg tablet 5 mg PO BIDPRN PRN severe shoulder 04/16/24
pain
Allergies
Allergies
Allergy/AdvReac Type Severity Reaction Status Date / Time
No Known Allergies Allergy Verified 04/01/24 07:34
Physical Exam
-
Exam:
MRI cervical spine shows no stenosis
MRI Thoracic spine shows no spinal cord compression
MRI Lumbar spine with severe L4/5 stenosis
AAox3
CN's 2-12 intact
Full UE strength
Full LE strength but pain limited in proximal LE's
Reflexes reveal hyperreflexia in UE and LE 3/4
Sensory normal
Problems
-
Problem Status Onset Code
Acute muscle weakness M62.81
Assessment / Plan
-
LE pain and weakness
1. no neurosurgical interventions needed: his pain is in his proximal HF's, with increased inflam markers ? whether this is inflammatory in nature
2. start steroids as per neurology recs
3. d/w patient and medicine attending
--- NOTE | 2024-04-17 11:11 | W.PN.UPDATE ---
Update Note
Progress Note Update
Case discussed with Dr. Mcpherson over the phone. He does not feel the patient has Guillain-Smith� syndrome. 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
[2024-04-17] MEDS: SOLU-MEDROL PF 250 MG IV (12:33)
[2024-04-17 12:43] VITALS: BP 160/83; PULSE 75; O2SAT 96
--- NOTE | 2024-04-17 14:41 | CM ---
Addendum entered by Marge Jamil 04/17/24 16:06:
[facility] accepted referral pending bed availability when patient is stable for discharge
Addendum entered by Marge Jamil 04/17/24 15:43:
Met with patient and at bedside; SNF preferences identified
Referrals sent to #1 [facility], #2 [facility], #3 [facility] via [facility]
Addendum entered by Marge Jamil 04/17/24 14:49:
Patient is agreeable with going to SNF; will review list of options provided and identify 3 sites for referrals
CM will follow up with patient tomorrow to obtain preferences and submit referrals
Plan: discharge to SNF when medically stable; pending SNF bed availability
Original Note:
Met with patient at the bedside; initial assessment completed
Pharmacy verified: [facility] @ [address] [place] [address]
Patient lives w/ in a 2 story home including basement; 13 steps to enter via the walkout basement; railings present
PLOF: reports he was independent with stairs, ambulation, and ADLs; Drives; Retired; NO DME
NO history of SNF
Home Health after knee surgery 2021 and 2022
will transport if he goes home
PT recommended SNF when stable for Discharge; list of SNF options provided
Plan: To be determined
[2024-04-17 15:00] VITALS: BP 147/80
--- NOTE | 2024-04-17 16:24 | CON.MD ---
Consultation - Medical
-
Referring Provider:�Dr. Jeison Lyn
Chief Complaint:�Lower extremity weakness concern for myositis
�
History of Present Illness:�69-year-old right-handed male with PMH (as below) presented to [facility] on 04/16/2024 with bilateral thigh weakness and muscle spasms for 2 days. Started off having left leg weakness with some discomfort in
the left groin and proximal thigh but progressed to the right. He had recent rotator cuff surgery 2 weeks ago for shoulder and pain on 04/01/[address] Banegas. Statin held. Had a lumbar MRI noting multilevel degenerative disc disease most
significant L4-L5 with severe degenerative disc disease with compression of the thecal sac and thoracic MRI noting degenerative disc disease of the cervical spine. Seen by neurology with concern for myopathy/inflammatory myositis. Started on
Solu-Medrol with plan for EMG testing in 1 to 2 weeks. No surgical intervention. Has elevated ESR and CRP.
Having pain in the right more then left leg at this time. Still weak and trouble with getting up from sitting.
�
Past Medical History:�HTN, HLD, cigar smoking, daily alcohol, osteoarthritis, degenerative disc disease
Procedure History:�Bilateral knee replacements 2021 2022, right rotator cuff repair March 2024, bilateral heel spurs, left carpal tunnel release, left rotator cuff repair
Family History:�Noncontributory
�
Social History:�
Functional Level Premorbidly:�Independent with all activities�
Functional Level Currently:�Mod assist toilet transfer, max assist with bed mobility, mod assist transfer, ambulate 2 feet from bed to chair with mod assist x 2
�
Tobacco:�Occasional cigar smoking
Alcohol:�Drinks 1 beer daily
Drug use:�Denies�
�
Lives with:�Spouse
24-hour assistance available:�
Number of floors:�1
# steps to enter:�4
Driving:�Yes
Occupation:�
�
�
Allergies:�
Allergy/AdvReac Type Severity Reaction Status Date / Time
No Known Allergies Allergy Verified 04/01/24 07:34
�
Review of Systems:�
Constitutional: (x) abNormal _fatigue
Eye: (x) Normal _
Ear/Nose/Throat: (x) Normal _
Respiratory: (x) Normal _
Cardiovascular: (x) Normal _
Gastrointestinal: (x) Normal _
Genitourinary: (x) Normal _
Musculoskeletal: (x) abNormal _left shoulder pain with limited motion, right more than left leg pain, bilateral leg weakness
Integumentary: (x) Normal _
Neurologic: (x) Normal _
Psychiatric: (x) Normal _
Endocrine: (x) Normal _
Hematologic/Lymphatic: (x) Normal _
Allergic/Immunologic: (x) Normal _
�
Medications:�
Active Current Visit Medication List
Category Date Time Status
Acetaminophen [Tylenol] Med 04/16/24 18:13 Active
650 mg PO Q4HPRN PRN
Amlodipine [Norvasc] Med 04/17/24 08:00 Active
10 mg PO DAILY
Cyclobenzaprine HCl [Flexeril] Med 04/16/24 17:02 Active
10 mg PO TIDPRN PRN
Flush (0.9% Sodium Chloride) [Flush (Nss)] Med 04/16/24 18:00 Active
See Dose Instructions IV PER PROTOCOL
Heparin Med 04/16/24 20:00 Active
5,000 units SC Q12
Lisinopril [Zestril] Med 04/17/24 08:00 Active
40 mg PO DAILY
MethylPREDNISolone PF [Solu-Medrol Pf] Med 04/17/24 12:00 Active
250 mg IV Q12H
Multivitamin [Theragran] Med 04/17/24 08:00 Active
1 tablet PO DAILY
Oxycodone [Roxicodone] Med 04/16/24 18:13 Active
5 mg PO BIDPRN PRN
�
Vitals:�
Temp Pulse Resp BP Pulse Ox
98.4 F 77 20 147/80 96
04/17/24 15:00 04/17/24 15:00 04/17/24 15:00 04/17/24 15:00 04/17/24 15:00
Height 6 ft
Actual Weight 106.793 kg
Body Mass Index (BMI) 32.0
�
Physical Exam:�
General Appearance/Observation: Well-developed, well-nourished male in no apparent distress.�
Pain/Comfort Assessment: Left shoulder, right more than left leg
Mood/Affect: Appropriate�
�
Integumentary/Operative Site:�Left shoulder incision not evaluated. No other lesions noted during course of exam.
�
Eyes: Conjunctiva/Lids: normal���� Pupils: pupils equal round and reactive to light
Ears/Nose/Throat: oral mucosa moist,� throat clear.������������ Lips/Teeth/Gums: normal�
Cardiovascular: Heart: regular, no murmur�
Pulses: dorsalis pedis 2+ bilaterally�
Respiratory: Respiratory Effort/Chest Expansion: normal������� Auscultation: Clear to auscultation bilaterally�
Gastrointestinal: abdomen not tender, no distension, normal abdominal bowel sounds�
Genitourinary: No Cabral�
Rectal Exam: Deferred�
Extremities:�Edema: Slight left hand�cyanosis: None�Trophic�changes: None
�
Neurology Exam:
Orientation: Alert, Oriented to self, Time, Place�
Memory: Intact for recent medical concerns
Repetition: Intact
Comprehension: Intact
Two step command: Intact
Cranial Nerves:
�� CNII:�Pupillary light reflex: Intact���
�� CN III, IV, : Extraocular muscles: Intact�
�� CN VII:�Facial movement: Symmetric
�� CN VIII:�Hearing: Normal
�� CN IX/X:�Speech & swallow: Normal,�Position of Uvula: Midline
�� CN XI:�Shoulder shrug: Symmetric
�� CN XII:�Tongue protrusion: Midline
Sensory:
�� Light touch: Intact in bilateral upper and lower extremities
�
Reflexes:
�� Biceps: 2+ bilaterally
�� Brachioradialis: 2+ bilaterally
�� Triceps: 2+ bilaterally
�� Patellar: 3+ bilaterally
�� Achilles: 3+ bilaterally
�� Babinski: Down going bilaterally
�� Clonus: None
�� Yue: Negative bilaterally�
Cerebellar: Dysmetria/Ataxia: None�
Musculoskeletal: Motor: (Manual muscle scale 0-5)�
Muscle SA EF WE EE FF FA HF KE DF EHL PF
Right� 5 5 5 5 5 4 2 4 5 5 5
Left NT NT NT NT 5 4 3 4+ 5 5 5
�
Tone: Normal in all extremities�
Range of Motion: Passively within normal limits in all extremities�
�
Lab Results
Laboratory Data
04/17/24 09:00
04/17/24 09:00
Total Bilirubin 0.7 mg/dl (0.2-1.3) 04/16/24 10:06
AST 21 U/L (17-59) 04/16/24 10:06
ALT 24 U/L (0-50) 04/16/24 10:06
Alkaline Phosphatase 59 U/L (38-126) 04/16/24 10:06
Total Protein 7.3 g/dl (6.3-8.2) 04/16/24 10:06
Albumin 4.6 g/dl (3.5-5.0) 04/16/24 10:06
�
Diagnostic Results:�as per HPI�
-MRI thoracic spine 04/16/24: Changes of degenerative disc disease in the cervical spine from C4-5 through C6-7, there appears to be slight compression of the anterior spinal cord. If further imaging evaluation of the cervical spine is desired, a
full MRI exam of the cervical spine could be performed. Moderate changes of degenerative disc disease from T3-4 through T12-L1. No evidence for spinal cord compression or significant overall central canal stenosis. Normal morphology and signal
intensity of the thoracic spinal cord, with no evidence for abnormal enhancement.
-MRI lumbar spine 04/16/24: Changes of degenerative disc disease. Most significant findings appear to be at L4-5. There is no MR evidence for discitis or osteomyelitis.
�
Assessment
69-year-old right-handed M PM (HTN, HLD, cigar smoking, daily alcohol, osteoarthritis, degenerative disc disease) with concern for myositis, on steroids with ADL and amatory dysfunction.
Plan�
PM&R�PT/OT to increase independence with ADLs, improve balance, coordination, endurance, strength, mobility, community reintegration, decreased burden of care on others and family education.�
�
Bilateral lower extremity pain and weakness proximally: Has elevated ESR and CRP. Thought to be likely a myositis and started on steroids by neurology. Patient noticing some improvement. Still significant weakness.
Left rotator cuff surgery: In sling, nonweightbearing with balloon for 2 weeks followed by 2 weeks in sling without balloon per patient. Limited mobility secondary to recent surgery. Will need rotator cuff rehabilitation program when cleared by
surgery.
HTN: Lisinopril and amlodipine, monitor closely�
HLD: Not on medication
Pain: acetaminophen or oxycodone as needed.� Flexeril as needed for spasms
Bowel: Colace and Senna, PRN bisacodyl.�
Bladder: Time void, PVRs, PRN straight cath.�
GI Prophylaxis: Suggest pantoprazole�
DVT Prophylaxis: Mechanical and heparin
Pulmonary: Incentive spirometry�
Obesity: Continue to outreach counselor patient about diet adjustments to control obesity. Body habitus and increased force to move body and extremities causes further difficulty with functional tasks.�
Safety: Continue to reinforce assistance with all transfers.�
Code Status:� Full code
Dispo�(date/plan/equipment needs): Home with family care.� Social history reviewed.�
Functional and Medical Goals:�Modified Independent with ADL�s, ambulation, transfers�
[facility]charge Destination:�[facility] facility
�
Summary of recommendations:
-�Discharge Destination:�[facility] facility
Bilateral lower extremity pain and weakness proximally: Has elevated ESR and CRP. Thought to be likely a myositis and started on steroids by neurology. Patient noticing some improvement. Still significant weakness.
Left rotator cuff surgery: In sling, nonweightbearing with balloon for 2 weeks followed by 2 weeks in sling without balloon per patient. Limited mobility secondary to recent surgery. Will need rotator cuff rehabilitation program when cleared by
surgery.
GI Prophylaxis: Suggest pantoprazole�
DVT Prophylaxis: Mechanical and heparin
Thank you for allowing me to care for your patient. Please contact me with any questions or concerns.
[2024-04-17 16:33] LABS: Lyme Antibody Screen, EIA Negative (Negative)
[2024-04-18] MEDS: SOLU-MEDROL PF 250 MG IV ×3 (00:10→23:08)
[2024-04-18 00:26] VITALS: BP 132/68
[2024-04-18 07:20] VITALS: BP 145/64
--- NOTE | 2024-04-18 08:03 | W.PN.HOSP.TC ---
Addendum entered and electronically signed by Jeison Lyn MD 04/18/24 11:53:
I saw and evaluated the patient. I reviewed the resident�s note and agree with findings and plan as documented in the resident�s note.
No new complaints.
Gen: NAD, AAOx3.
Eyes: EOMI, PERRLA, no scleral icterus.
Neck: supple.
CV: remains RRR, +S1/S2, no m/r/g.
Resp: remains CTAB, no rales, wheezes, or rhonchi.
Abd: +BS, soft, NT, ND
Skin: No rashes.
Neuro: CN 2-12 intact, RLE/LLE 5/5, no sensory deficits
Psych: Normal mood and affect.
Bilateral lower extremity weakness due to acute myositis, possibly myasthenia gravis:
-The case has been discussed with Neurosurgery and Neurology today. There is nothing to surgically intervene on. Guillain-Smith� syndrome is unlikely. Patient with elevated ESR and CRP.
-Check MRI C-spine for completeness
-cont IV Solu-Medrol through tomorrow then transition to Prednisone 04/20/24
-check anti-acetylcholine receptor antibodies
Obesity due to excess calories
Original Note:
Today's Communication/Plan
-
-Discharge plan for tomorrow after assessment by Neurology
Assessment / Plan
Assessment / Plan
Impression:
The patient is a 69-year-old male with a PMH of hypertension, hyperlipidemia, left rotator cuff tear status post surgery, bilateral knee replacement who presented to ER complaining from weakness on both legs and pain on his right/left thigh.The
patient reported he started to have gradually weakness since last 2 days and today he is able to move her left leg more comparing to yesterday. He had his muscle strength preserved on DF/PF grossly 5/5 on both foot. He was obtained Lumbar/thoracic
MRI at admission showing: Changes of moderate to severe degenerative disc disease at multi level of lumbar vertebra and no evidence for discitis or osteomyelitis. He was ordered Cervical MRI due concern slight compression of the anterior spinal
cord which was seen on thoracic spinal MRI. Abd/Pelvis CT was unremarkable for his bilateral muscle weakness. Has elevated ESR and CRP. The patient was discussed with Neurology and Neurosurgery on 04/17/24. No surgical intervention. The patient is
able to stand from his chair and stand without assistance on 04/18 and reports experiencing less pain ( 1-2/10)
Plan/Assessment:
#Bilateral leg weakness with Acute ambulatory dysfunction due Myositis vs DDD vs Neuropathy
-Lumbar/thoracal/Cervical MRI obtained: Multi level DDD
-Concern for myopathy vs other neuromuscular diseases
-Case discussed with Dr. Mcpherson: Thinks likely inflammatory myositis vs Guillain-Smith� syndrome
-Neurology involvement appreciated: improvement after IV steroid treatment
-Continue IV steroids.
-Will likely need outpatient EMG testing
-Appreciated Physiatry cons.
-Will try Flexeril 10 mg 3 times daily as needed muscle spasms
-Hold simvastatin 20 mg daily
-PT/OT saw the patient
#HTN
-Cont lisinopril 40 mg daily
-Continue amlodipine 10 mg daily
#Hyperglycemia
-Likely due steroid
-Follow up
-HgbA1c ordered
#HLD
-Hold simvastatin 20 mg daily
-CPK normal
#Postop left shoulder rotator cuff repair 04/01/2024
-Patient currently in pillow sling additional 2 weeks with follow-up Ortho [address] Hawkins
#DVT prophylaxis
-Subcu heparin
-Mechanical
#Discharge
-Discussed with Neurology and CM
-Patient is willing to home with home rehab due having his some strength back and having less pain.
#Code status:
Full code
Anticipated Discharge: 24 - 48 hours
Subjective/Interval History
-
Date of Service: April 18, 2024
The patient reports feeling better and now he is able to stand for a while by himself. He reported improving with his pain and muscle weakness on his legs. He reported that his changed his mind about going to home with home rehab instead of SNF if
he continues having improvement. It will be discussed with his CM.
Objective Data
-
Labs:
Laboratory Results
04/18/24
07:32
WBC Pending
Hgb Pending
Hct Pending
Plt Count Pending
Sodium Pending
Potassium Pending
Chloride Pending
Carbon Dioxide Pending
BUN Pending
Creatinine Pending
Glucose Pending
Calcium Pending
Total Bilirubin Pending
AST Pending
ALT Pending
Alkaline Phosphatase Pending
Vital Signs:
Vital Signs
Temp Pulse Resp BP Pulse Ox
98.1 F 61 20 132/68 96
04/18/24 00:26 04/18/24 00:26 04/18/24 00:26 04/18/24 00:26 04/18/24 00:26
I&O
04/17/24 04/18/24 04/19/24
06:59 06:59 06:59
Intake Total 1440 / 1440
Output Total 650 / 650
Balance -650 / -650 1440 / 1440
Review of Systems
-
History Source: Patient
EENT: Reports No Symptoms Reported
Respiratory: Reports No Symptoms
Cardiac: Reports No Symptoms
Abdomen/GI: Reports No Symptoms
Genitourinary: Reports No Symptoms
Musculoskeletal: Reports Other (See HPI )
Skin: Reports No Symptoms
Neuro: Reports Other (See HPI )
Endocrine: Reports No Symptoms
Physical Exam
-
General: Well Developed, Well Nourished, No Apparent Distress and Conversant
HEENT: Normocephalic and Atraumatic
Respiratory: Clear to Auscultation
Cardiac: Regular Rhythm and S1/S2
GI: Soft, Nontender and Nondistended
Musculoskeletal: Other ( Able to raise both legs while sitting in the chair. Muscle strength exam is limited due pain HF/KE and grossly 4/5 on both side on today`s PE. PF/DF 5/5. Has a left shoulder sling due shoulder surgery)
Skin: Warm and Dry
Neuro: Awake, Alert, Oriented and AO x 3
Psych: Calm
[2024-04-18] MEDS: THERAGRAN 1 TABLET PO (08:16)
[2024-04-18] MEDS: ZESTRIL 40 MG PO (08:16)
[2024-04-18] MEDS: HEPARIN 5000 UNITS SC ×2 (08:16→19:39)
[2024-04-18] MEDS: NORVASC 10 MG PO (08:16)
[2024-04-18 08:26] LABS: % Basophils 0.1 % (0-2); % Immature Granulocytes 0.3 % (0-0.5); % Lymphocytes 4.3 % (20.5-51.1); % Monocytes 1.6 % (1.7-9.3); % Neutrophils 93.7 % (42.2-75.2); Absolute Lymphocytes 0.4 10^3/uL (1.2-3.4); Absolute Monocytes 0.2 10^3/uL (0.1-0.6); Absolute Neutrophils 9.4 10^3/uL (1.4-6.5); Hemoglobin 14.9 g/dL (13.0-18.0); Mean Corp Hgb Conc. 35.5 g/dL (33.0-37.0); Mean Corpuscular Hgb 30.3 pg (27.0-31.0); Mean Corpuscular Volume 85.5 fL (80.0-94.0); Nucleated Red Blood Cells % 0 % (-); Platelet Count 244 10^3/uL (130-400); Red Blood Cell Count 4.91 10^6/uL (4.70-6.10); Red Cell Dist. Width 11.9 % (11.5-14.5)
[2024-04-18 08:56] LABS: ALT (SGPT) 24 U/L (0-50); AST (SGOT) 20 U/L (17-59); Albumin 4.7 g/dl (3.5-5.0); Alkaline Phosphatase 69 U/L (38-126); Blood Urea Nitrogen 23 mg/dl (9-20); Calcium 10.2 mg/dl (8.4-10.2); Carbon Dioxide 21 mmol/L (22-30); Chloride 103 mmol/L (98-107); Estimated Creatinine Clearance 113 ml/min; Glucose 174 mg/dl (70-99); Potassium 4.2 mmol/L (3.5-5.1); Sodium 142 mmol/L (135-145); Total Bilirubin 0.6 mg/dl (0.2-1.3); Total Protein 7.9 g/dl (6.3-8.2); eGFR > 60.00
--- NOTE | 2024-04-18 09:01 | CM ---
Spoke with Jacqueline who says that [facility] have a bed available and will accept pt.
For [facility] coverage, 3 night stay, will need to stay until Saturday.
[2024-04-18 13:50] LABS: Glycohemoglobin (HgbA1c) 5.4 % (4.0-5.6)
[2024-04-18 15:29] VITALS: BP 123/60
--- NOTE | 2024-04-18 19:34 | W.PN.NEURO.1 ---
Today's Communication / Plan
-
Solumedrol 250mg IV q 12 day# 2
Switch to Prednisone 60mg on Saturday
PT/OT
Neuro Assessment/Plan
Assessment
This is a 69-year-old RH male who was admitted with acute onset of leg weakness proximally associated with b/l groin/inner thigh pain on leg exertion.
-MRI thoracic spine 04/16/24: Changes of degenerative disc disease in the cervical spine from C4-5 through C6-7, there appears to be slight compression of the anterior spinal cord. Moderate changes of degenerative disc disease from T3-4 through
T12-L1. No evidence for spinal cord compression or significant overall central canal stenosis. Normal morphology and signal intensity of the thoracic spinal cord, with no evidence for abnormal enhancement.
-MRI lumbar spine 04/16/24: Changes of degenerative disc disease. Most significant findings appear to be at L4-5 with spinal stenosis. There is no MR evidence for discitis or osteomyelitis.
I. Myopathy/inflammatory myositis resolving with Solumedrol therapy.
II. Thoracic and Lumbar spine with multilevel degenerative changes most prominent at L4, L5.
Plan
-Continue Solu-Medrol 250mg IV q12hrs day# 2. Switch to Prednisone taper 60mg on Saturday
-Consider EMG testing after 2 weeks.
-Avoid statin therapy.
-Physical therapy evaluations.
-DVT prophylaxis.
-GI prophylaxis.
Subjective/Objective
Subjective Data
Date of Service: April 18, 2024
Pat has dramatic improvement in muscle strength following initiation of steroids. Able to stand and walk.
Objective Data
Vital Signs
Temp Pulse Resp BP Pulse Ox
36.6 C 63 20 123/60 100
04/18/24 15:29 04/18/24 15:29 04/18/24 15:29 04/18/24 15:29 04/18/24 15:29
Lab Results
04/18/24 07:32
04/18/24 07:32
Sodium 142 mmol/L (135-145) 04/18/24 07:32
Potassium 4.2 mmol/L (3.5-5.1) 04/18/24 07:32
BUN 23 mg/dl (9-20) H 04/18/24 07:32
Glucose 174 mg/dl (70-99) H 04/18/24 07:32
Calcium 10.2 mg/dl (8.4-10.2) 04/18/24 07:32
Phosphorus Cancelled 04/16/24 10:13
Patient Allergies
No Known Allergies Allergy (Verified 04/01/24 07:34)
Physical Exam
-
General: Well Developed, Well Nourished and No Apparent Distress
Eyes: Able to visualize OU, Unremarkable and Round OU
HEENT: Normocephalic, Atraumatic and Anicteric
Neck: No Bruits Bilaterally and Full Range of Motion
Respiratory: Clear to Auscultation
Cardiac: Regular Rhythm and No Murmur
GI: Normal Bowel Sounds, Soft, Non-tender and Non-distended
Extended Neurological Exam
Mood & Affect: Mood Unremarkable and Affect Unremarkable
Attention Span & Concentration: Awake, Alert, Interactive and No Difficulty with 2 Step Request
Memory: Unremarkable and Able to Recall
Tremor: Hand Tremor Absent and Head Tremor Absent
Speech: Quality Unremarkable, Quantity Unremarkable and Rate of Production Unremarkable
Cranial Nerve II: Left Eye: Pupillary Reactivity Unremarkable, Pupillary Size Unremarkable and Visual Paredes Grossly Intact
Cranial Nerve II: Right Eye: Pupillary Reactivity Unremarkable, Pupillary Size Unremarkable and Visual Paredes Grossly Intact
Cranial Nerves III, IV, : Extraocular Movement: Extraocular Movement Full in all Directions
Cranial Nerve V: Facial Sensation: Facial Sensation Unremarkable to Cold and Intact to Light Touch
Cranial Nerve VII: Facial Symmetry: Normal Facial Symmetry
Cranial Nerve VIII: Hearing: Unremarkable Hearing to Normal Conversational Volume
Cranial Nerves IX, X: Palate Movement: Palate Elevation Symmetric
Cranial Nerve XI: Shoulder Shrug: Unremarkable
Cranial Nerve XII: Tongue Protusion: Midline
Muscle Strength, Overall: Full in Upper Extremities and Other (Proximal weakness in Lower extremities resolving)
Muscle Bulk & Tone: Bulk Unremarkable and Tone Unremarkable
Pronator Drift: No Drift in Upper Extremities and No Drift in Lower Extremities
Deep Tendon Reflexes: 3+
Cold Sensation: Unremarkable
Vibration Sensation: Unremarkable
Touch Sensation: Unremarkable
Coordination: Vritpd-rxuc-poabsw Testing Unremarkable
Babinski Sign: Absent Bilaterally
Gait & Station: Unremarkable Arm Swing and Up from Seated Without Problem
[2024-04-18 23:00] VITALS: BP 144/63
[2024-04-19 07:00] VITALS: BP 110/61
[2024-04-19 07:04] LABS: % Basophils 0.2 % (0-2); % Immature Granulocytes 0.6 % (0-0.5); % Lymphocytes 3.4 % (20.5-51.1); % Monocytes 2.9 % (1.7-9.3); % Neutrophils 92.9 % (42.2-75.2); Absolute Immature Granulocytes 0.1 10^3/uL (0-0.05); Absolute Lymphocytes 0.4 10^3/uL (1.2-3.4); Absolute Monocytes 0.4 10^3/uL (0.1-0.6); Absolute Neutrophils 11.8 10^3/uL (1.4-6.5); Hematocrit 36.8 % (39.0-52.0); Hemoglobin 13.3 g/dL (13.0-18.0); Mean Corp Hgb Conc. 36.1 g/dL (33.0-37.0); Mean Corpuscular Hgb 29.6 pg (27.0-31.0); Mean Corpuscular Volume 81.8 fL (80.0-94.0); Mean Platelet Volume 10.4 fL (7.4-10.4); Nucleated Red Blood Cells % 0 % (-); Platelet Count 215 10^3/uL (130-400); White Blood Cell Count 12.7 10^3/uL (4.8-10.8)
--- NOTE | 2024-04-19 07:55 | W.PN.HOSP.TC ---
Today's Communication/Plan
-
-Discharge plan with CM
Assessment / Plan
Assessment / Plan
Impression:
The patient is a 69-year-old male with a PMH of hypertension, hyperlipidemia, left rotator cuff tear status post surgery, bilateral knee replacement who presented to ER complaining from weakness on both legs and pain on his right/left thigh.The
patient reported he started to have gradually weakness since last 2 days and today he is able to move her left leg more comparing to yesterday. He had his muscle strength preserved on DF/PF grossly 5/5 on both foot. He was obtained Lumbar/thoracic
MRI at admission showing: Changes of moderate to severe degenerative disc disease at multi level of lumbar vertebra and no evidence for discitis or osteomyelitis. He was ordered Cervical MRI due concern slight compression of the anterior spinal
cord which was seen on thoracic spinal MRI. Abd/Pelvis CT was unremarkable for his bilateral muscle weakness. Has elevated ESR and CRP. The patient was discussed with Neurology and Neurosurgery on 04/17/24. No surgical intervention. The patient is
able to stand from his chair and stand without assistance and reports experiencing less pain on his bilateral inguinal area after he was started on IV steroid treatment.
Plan/Assessment:
#Bilateral leg weakness with Acute ambulatory dysfunction due Myositis vs DDD vs Neuropathy
-Lumbar/thoracal/Cervical MRI obtained: Multi level DDD
-Concern for myopathy vs other neuromuscular diseases:[id number] and MuSK antibodies pending
-Case discussed with Dr. Mcpherson: Thinks likely inflammatory myositis vs Guillain-Smith� syndrome
-Neurology involvement appreciated: improvement after IV steroid treatment
-Continue Solu-Medrol 250mg IV q12hrs and will switch to oral Prednisone taper 60mg on Saturday on 04/20
-Will likely need outpatient EMG testing
-Will try Flexeril 10 mg 3 times daily as needed muscle spasms
-Hold simvastatin 20 mg daily until to be assessed by neurology at OP setting
-PT/OT saw the patient
#HTN
-Cont lisinopril 40 mg daily
-Continue amlodipine 10 mg daily
#Hyperglycemia
-Likely due steroid
-Follow up
-HgbA1c: 5.4
#HLD
-Hold simvastatin 20 mg daily
-CPK normal
#Postop left shoulder rotator cuff repair 04/01/2024
-Patient currently in pillow sling additional 2 weeks with follow-up Ortho [address] Hawkins
#DVT prophylaxis
-Subcu heparin
-Mechanical
#Discharge
-Discussed with Neurology and CM
-Patient is willing to home with home rehab due having his some strength back and having less pain.
#Code status:
Full code
Anticipated Discharge: 24 - 48 hours
Subjective/Interval History
-
Date of Service: April 19, 2024
Patient was seen sitting in the chair and was with his at bedside. He reported feeling better and has still a low amount of pain on his right inguinal area while trying to turn with his cane. Denies other symptoms.
Objective Data
-
Labs:
Laboratory Results
04/19/24 04/19/24
06:14 07:52
WBC 12.7 H
Hgb 13.3
Hct 36.8 L
Plt Count 215
Sodium Cancelled Pending
Potassium Cancelled Pending
Chloride Cancelled Pending
Carbon Dioxide Cancelled Pending
BUN Cancelled Pending
Creatinine Cancelled Pending
Glucose Cancelled Pending
Calcium Cancelled Pending
Total Bilirubin Cancelled Pending
AST Cancelled Pending
ALT Cancelled Pending
Alkaline Phosphatase Cancelled Pending
Vital Signs:
Vital Signs
Temp Pulse Resp BP Pulse Ox
97.7 F 54 18 144/63 98
04/18/24 23:00 04/18/24 23:00 04/18/24 23:00 04/18/24 23:00 04/18/24 23:00
I&O
04/18/24 04/19/24 04/20/24
06:59 06:59 06:59
Intake Total 1440 / 1440 1200 / 1200
Balance 1440 / 1440 1200 / 1200
Review of Systems
-
History Source: Patient
EENT: Reports No Symptoms Reported
Respiratory: Reports No Symptoms
Cardiac: Reports No Symptoms
Abdomen/GI: Reports No Symptoms
Genitourinary: Reports No Symptoms
Musculoskeletal: Reports Other (See HPI )
Skin: Reports No Symptoms
Neuro: Reports Other (See HPI )
Endocrine: Reports No Symptoms
Physical Exam
-
General: Well Developed, Well Nourished, No Apparent Distress and Obese
HEENT: Normocephalic and Atraumatic
Respiratory: Clear to Auscultation
Cardiac: Regular Rhythm and S1/S2
GI: Soft, Nontender and Nondistended
Musculoskeletal: No Clubbing, No Cyanosis, No Edema and Other (See HPI )
Skin: Warm
Neuro: Awake, Alert, Oriented, AO x 3 and Nonfocal/Grossly Intact
Psych: Calm
[2024-04-19] MEDS: THERAGRAN 1 TABLET PO (08:13)
[2024-04-19] MEDS: HEPARIN 5000 UNITS SC ×2 (08:15→19:18)
[2024-04-19] MEDS: NORVASC 10 MG PO (08:17)
[2024-04-19] MEDS: ZESTRIL 40 MG PO (08:18)
[2024-04-19 09:18] LABS: ALT (SGPT) 32 U/L (0-50); AST (SGOT) 25 U/L (17-59); Albumin 4.3 g/dl (3.5-5.0); Alkaline Phosphatase 63 U/L (38-126); Blood Urea Nitrogen 33 mg/dl (9-20); Calcium 10.2 mg/dl (8.4-10.2); Carbon Dioxide 20 mmol/L (22-30); Chloride 105 mmol/L (98-107); Estimated Creatinine Clearance 113 ml/min; Glucose 175 mg/dl (70-99); Potassium 4.5 mmol/L (3.5-5.1); Sodium 140 mmol/L (135-145); Total Bilirubin 0.4 mg/dl (0.2-1.3); Total Protein 7.2 g/dl (6.3-8.2); eGFR > 60.00
--- NOTE | 2024-04-19 09:27 | W.PN.UPDATE ---
Update Note
Progress Note Update
I saw and evaluated the patient. I reviewed the resident�s note and agree with findings and plan as documented in the resident�s note.
No new complaints.
Gen: NAD, AAOx3.
Eyes: EOMI, PERRLA, no scleral icterus.
Neck: supple.
CV: Continues to remain RRR, +S1/S2, no m/r/g.
Resp: Continues to remain CTAB, no rales, wheezes, or rhonchi.
Abd: +BS, soft, NT, ND
Skin: No rashes.
Neuro: CN 2-12 intact, remains RLE/LLE 5/5, no sensory deficits
Psych: Normal mood and affect.
Bilateral lower extremity weakness due to acute myositis, possibly myasthenia gravis:
-The case has been discussed with Neurosurgery and Neurology today. There is nothing to surgically intervene on. Guillain-Smith� syndrome is unlikely. Patient with elevated ESR and CRP.
-Check MRI C-spine for completeness
-cont IV Solu-Medrol through today then transition to Prednisone 04/20/24
-nlix-[id number]-L and MuSK antibodies pending
Obesity due to excess calories
Pt's updated at bedside. Pt and family are requesting discharge to home on 04/20/24.
[2024-04-19] MEDS: SOLU-MEDROL PF 250 MG IV (12:05)
[2024-04-19 15:00] VITALS: BP 138/69
[2024-04-19 23:41] VITALS: BP 118/60
[2024-04-20 07:41] VITALS: BP 128/70
[2024-04-20 07:56] LABS: % Basophils 0.1 % (0-2); % Immature Granulocytes 0.4 % (0-0.5); % Lymphocytes 4.8 % (20.5-51.1); % Monocytes 7.2 % (1.7-9.3); % Neutrophils 87.5 % (42.2-75.2); Absolute Immature Granulocytes 0.1 10^3/uL (0-0.05); Absolute Lymphocytes 0.5 10^3/uL (1.2-3.4); Absolute Monocytes 0.8 10^3/uL (0.1-0.6); Absolute Neutrophils 9.9 10^3/uL (1.4-6.5); Hematocrit 37.5 % (39.0-52.0); Mean Corp Hgb Conc. 34.7 g/dL (33.0-37.0); Mean Corpuscular Hgb 29.9 pg (27.0-31.0); Mean Corpuscular Volume 86.2 fL (80.0-94.0); Mean Platelet Volume 10.1 fL (7.4-10.4); Nucleated Red Blood Cells % 0 % (-); Platelet Count 232 10^3/uL (130-400); Red Blood Cell Count 4.35 10^6/uL (4.70-6.10); White Blood Cell Count 11.3 10^3/uL (4.8-10.8)
[2024-04-20] MEDS: DELTASONE 60 MG PO (08:14)
[2024-04-20] MEDS: HEPARIN 5000 UNITS SC (08:15)
[2024-04-20] MEDS: THERAGRAN 1 TABLET PO (08:15)
[2024-04-20] MEDS: NORVASC 10 MG PO (08:15)
[2024-04-20] MEDS: ZESTRIL 40 MG PO (08:15)
[2024-04-20 08:30] LABS: ALT (SGPT) 34 U/L (0-50); AST (SGOT) 24 U/L (17-59); Alkaline Phosphatase 59 U/L (38-126); Blood Urea Nitrogen 28 mg/dl (9-20); Calcium 9.8 mg/dl (8.4-10.2); Carbon Dioxide 27 mmol/L (22-30); Chloride 103 mmol/L (98-107); Estimated Creatinine Clearance 113 ml/min; Glucose 134 mg/dl (70-99); Potassium 4.8 mmol/L (3.5-5.1); Sodium 141 mmol/L (135-145); Total Bilirubin 0.4 mg/dl (0.2-1.3); Total Protein 6.7 g/dl (6.3-8.2); eGFR > 60.00
--- NOTE | 2024-04-20 09:37 | W.PN.NEURO.1 ---
Today's Communication / Plan
-
Add blood work for potential etiology
Continue prednisone 60 mg with rapid taper as outpatient
EMG of bilateral lower extremities to confirm absence of central nervous system etiology
For now may hold use of continued simvastatin
Continue physical therapy evaluations.
Neuro Assessment/Plan
Assessment
This is a 69-year-old RH male who was admitted with acute onset of leg weakness proximally associated with b/l groin/inner thigh pain on leg exertion.
Cervical spine MRI with and without contrast 04/17/2024 failed to demonstrate significant abnormality with and without contrast
-MRI thoracic spine 04/16/24: Changes of degenerative disc disease in the cervical spine from C4-5 through C6-7, there appears to be slight compression of the anterior spinal cord. Moderate changes of degenerative disc disease from T3-4 through
T12-L1. No evidence for spinal cord compression or significant overall central canal stenosis. Normal morphology and signal intensity of the thoracic spinal cord, with no evidence for abnormal enhancement.
-MRI lumbar spine 04/16/24: Changes of degenerative disc disease. Most significant findings appear to be at L4-5 with spinal stenosis. There is no MR evidence for discitis or osteomyelitis.
Not clear that the patient is experiencing a myositis based on normal CK. Presence of hyperreflexia is more suggestive of a spinal cord abnormality, although not demonstrated by entire spinal cord imaging with and without contrast. Differential
diagnosis would include NMOSD and MOGAD. Likelihood of a spinal cord infarction is low based on significant improvement spontaneously. Also in the differential would be radiculopathy, not well-visualized currently
Patient received 2 days of methylprednisolone 500 mg/day during this hospitalization.
Plan
Add blood work for potential etiology
Continue prednisone 60 mg with rapid taper as outpatient
EMG of bilateral lower extremities to confirm absence of central nervous system etiology
For now may hold use of continued simvastatin
Continue physical therapy evaluations.
Will follow as outpatient
Subjective/Objective
Subjective Data
Date of Service: April 20, 2024
Pain improved since yesterday, 'twinges' when moving a certain way
Strength is much improved, at time of admission could not lift bilateral legs, now able to do
Denies any change in urination and bowel movements since admission
Objective Data
Vital Signs
Temp Pulse Resp BP Pulse Ox
36.4 C 47 20 128/70 98
04/20/24 07:41 04/20/24 07:41 04/20/24 07:41 04/20/24 08:15 04/20/24 07:41
Lab Results
04/20/24 07:09
04/20/24 07:09
Sodium 141 mmol/L (135-145) 04/20/24 07:09
Potassium 4.8 mmol/L (3.5-5.1) 04/20/24 07:09
BUN 28 mg/dl (9-20) H 04/20/24 07:09
Glucose 134 mg/dl (70-99) H 04/20/24 07:09
Calcium 9.8 mg/dl (8.4-10.2) 04/20/24 07:09
Phosphorus Cancelled 04/16/24 10:13
Patient Allergies
Uzyhbxd-GHS-VlF Reductase Inhibitor Adverse Reaction (Severe, Verified 04/18/24 20:22)
Unknown
Physical Exam
-
(-) pronator drift
5/5 finger abduction, knee flexion, knee extension, hip flexion
Reflexes clonus in the right ankle
Remainder of reflexes unremarkable with exception of mild increase at bilateral patella
General: No Apparent Distress and Appears Stated Age
Eyes: Round OU, [place] Conjunctivae and No Ptosis
HEENT: Anicteric and Moist Mucous Membranes
Neck: Full Range of Motion
Respiratory: No Dyspnea
Cardiac: No JVD
GI: Non-distended
Skin: Unremarkable
Extremities: No Clubbing, No Cyanosis and No Edema
Psych: Negative Intact Judgement/Insight
Extended Neurological Exam
Mood & Affect: Mood Unremarkable and Affect Unremarkable
Attention Span & Concentration: Awake, Alert, Interactive and No Difficulty with 2 Step Request
Memory: Unremarkable
Tremor: Hand Tremor Absent and Head Tremor Absent
Involuntary Movement: None
Speech: Quality Unremarkable and Quantity Unremarkable
Cranial Nerve II: Left Eye: Pupillary Size Unremarkable and Visual Paredes Grossly Intact
Cranial Nerve II: Right Eye: Pupillary Size Unremarkable and Visual Paredes Grossly Intact
Cranial Nerve VII: Facial Symmetry: Normal Facial Symmetry
Cranial Nerve VIII: Hearing: Unremarkable Hearing to Normal Conversational Volume
Cranial Nerve XI: Shoulder Shrug: Unremarkable
Muscle Strength, Overall: Reduced (Bilateral proximal lower extremities 5- out of 5) and Otherwise Intact
Muscle Bulk & Tone: Bulk Unremarkable and Tone Unremarkable
Pronator Drift: No Drift in Upper Extremities
Gait & Station: Unable to Assess
Data Reviewed
-
Labs: Report Reviewed
Reviewed with: Physician and Patient
Old Records: Summarized
--- NOTE | 2024-04-20 12:38 | CM ---
Patient seen bedside.
PT recommending skilled rehab.
Patient declined skilled. Would like home with VN.
Patient unsure of prior VN. Called area VNs not known.
Options reviewed, agreeable to [facility].
TT to [facility].
IMM completed.
Plan: home with [facility].
--- NOTE | 2024-04-20 13:03 | VNURNOTE ---
Health Liaison met with patient at bedside to discuss [facility] nurse/therapy, visits, schedule and homebound status. Patient is agreeable to PT, OT and understands that visits at home will be 2-3 x per week to assess and teach medical management. Pt
declining nurse despite new Pred taper ordered.
[facility] brochure provided with contact information. Patient is aware that [facility] will contact them for start of care in 1-2 days after discharge from .
[facility] referral completed in [facility].
--- NOTE | 2024-04-20 13:20 | W.PN.HOSP.TC ---
Today's Communication/Plan
-
dc to home/VN
Assessment / Plan
Assessment / Plan
Assessment:
Bilateral lower extremity weakness due to acute myositis, possibly myasthenia gravis:
-The case has been discussed with Neurosurgery and Neurology today. There is nothing to surgically intervene on. Guillain-Smith� syndrome is unlikely. Patient with elevated ESR and CRP.
-Check MRI C-spine for completeness
-cont IV Solu-Medrol through today then transition to Prednisone 04/20/24; taper weekly. hold Statin acutely
-xwui-etfiefwljibsx-Y and MuSK antibodies pending
- OP PCP and Neuro f/u; EMG outpatient
Obesity due to excess calories
Essential HTN
- continue BP meds
Steroid induced hyperglycemia
- Hb 5.4%
HLD - hold Statin acutely for myositis
Postop left shoulder rotator cuff repair 04/01/2024
- Patient currently in pillow sling additional 2 weeks with follow-up Ortho [address] Hawkins
DVT ppx: SC Heparin
Code: Full
More than 30 minutes spent in discharge including
Final examination of the patient
Summarizing hospital stay
Instructions for continuing care to all relevant caregivers
Preparation of discharge records, prescriptions, and referral forms
Total time spent (in minutes):41
Anticipated Discharge: Today
Subjective/Interval History
-
Date of Service: April 20, 2024
no new complaints
Objective Data
-
Labs:
Laboratory Results
04/20/24
07:09
WBC 11.3 H
Hgb 13.0
Hct 37.5 L
Plt Count 232
Sodium 141
Potassium 4.8
Chloride 103
Carbon Dioxide 27
BUN 28 H
Creatinine 0.8
Glucose 134 H
Calcium 9.8
Total Bilirubin 0.4
AST 24
ALT 34
Alkaline Phosphatase 59
Vital Signs:
Vital Signs
Temp Pulse Resp BP Pulse Ox
97.5 F 47 20 128/70 98
04/20/24 07:41 04/20/24 07:41 04/20/24 07:41 04/20/24 08:15 04/20/24 09:45
I&O
04/19/24 04/20/24 04/21/24
06:59 06:59 06:59
Intake Total 1200 / 1200 1740 / 1740
Balance 1200 / 1200 1740 / 1740
Physical Exam
-
General: No Apparent Distress
HEENT: Normocephalic and Atraumatic
Respiratory: Negative Wheezes
Cardiac: Regular Rhythm
GI: Soft and Nontender
Musculoskeletal: No Edema
Neuro: AO x 3
Hematologic / Lymphatic: No Lymphadenopathy
Psych: Calm
Data Reviewed
-
Total Time Spent with Patient (in minutes): 41
Labs: Labs Reviewed by me
--- NOTE | 2024-04-20 13:29 | W.DS.TRANS ---
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
-
Discharge Instructions:
Discharge Diagnosis/Procedures Myositis, responding to steroids
Diet Regular
Activity As tolerated
Driving Restrictions Not until seen by your Dr
Bathing Restrictions None
Other Services OT,PT,VN
Instructions:
Stand-Alone Forms:
Changes to Home Medications: Yes
Discharge Medications:
DC Medications w/original date entered in I AM AT
amlodipine 10 mg tablet 10 mg PO DAILY Blood Pressure 03/25/24
lisinopril 40 mg tablet 40 mg PO DAILY Blood Pressure 03/25/24
multivitamin 1 tab PO DAILY Supplement 03/25/24
oxycodone 5 mg tablet 5 mg PO BIDPRN PRN severe shoulder pain 04/16/24
famotidine 20 mg tablet 20 mg PO DAILY #30 tabs 04/20/24
prednisone 10 mg tablet 10 mg PO DIRECTED #105 tabs 04/20/24
Home Medication Changes
statin stopped
Pending Results: No
Total time spent discharging patient (in min): 41
[2024-04-20 14:11] VITALS: BP 128/70; PULSE 51
[2024-04-20 14:24] VITALS: BP 139/75
== END 2024-04-20 15:17 | disposition home health service (06) | DRG 556 ==
LOC: 4 WEST ACU 17:15
PROVIDERS: Clinical Nurse Specialist Family Health; Internal Medicine; Physician Assistant; Student in an Organized Health Care Education/Training Program; ADMITTING PHYSICIAN Hospitalist; ATTENDING PHYSICIAN Internal Medicine; CONSULT PHYSICIAN Physical Medicine & Rehabilitation; CONSULT PHYSICIAN Psychiatry & Neurology Neurology; EMERGENCY PHYSICIAN Emergency Medicine; FAMILY PHYSICIAN Student in an Organized Health Care Education/Training Program; OTHER PHYSICIAN Neurological Surgery
DX: M60.9 Myositis, unspecified (principal); F17.290 Nicotine dependence, other tobacco product, uncomplicated; E66.09 Other obesity due to excess calories; Z68.31 Body mass index [BMI] 31.0-31.9, adult; I10 Essential (primary) hypertension; E78.5 Hyperlipidemia, unspecified; T38.0X5A Adverse effect of glucocorticoids and synthetic analogues, initial encounter; R73.9 Hyperglycemia, unspecified; Z11.52 Encounter for screening for COVID-19
CPT/HCPCS: 72141; 72157; 72158; 74174; 80048; 80053; 82550; 83036; 83735; 84100; 84443; 85025; 85652; 86041; 86140; 86366; 86618; 87502; 87811; 93005; 97116; 97163; 97167; 97535; 99285; 99406; A9575; Q9967

== ENCOUNTER → 2025-06-14 10:53 | Outpatient (REF) | payer MEDICARE, OTHER, SELFPAY ==
[2025-06-14 11:29] LABS: Hematocrit 39.5 % (39.0-52.0); Hemoglobin 14.3 g/dL (13.0-18.0); Mean Corp Hgb Conc. 36.2 g/dL (33.0-37.0); Mean Corpuscular Volume 89.0 fL (80.0-94.0); Nucleated Red Blood Cells % 0 % (-); Platelet Count 168 10^3/uL (130-400); Red Cell Dist. Width 12.8 % (11.5-14.5)
[2025-06-14 12:15] LABS: Blood Urea Nitrogen 11 mg/dl (9-20); Calcium 9.6 mg/dl (8.4-10.2); Carbon Dioxide 25 mmol/L (22-30); Chloride 108 mmol/L (98-107); Glucose 100 mg/dl (70-99); Potassium 4.3 mmol/L (3.5-5.1); Sodium 138 mmol/L (135-145); eGFR > 60.00
== END ==
LOC: RCS 10:53
PROVIDERS: ATTENDING PHYSICIAN Orthopaedic Surgery Hand Surgery; FAMILY PHYSICIAN Student in an Organized Health Care Education/Training Program
DX: Z01.818 Encounter for other preprocedural examination (principal)
CPT/HCPCS: 36415; 80048; 85025; 93005